=== PATIENT | male | born 1985 | race Caucasian/White ===

== ENCOUNTER 2017-03-15 11:45 | Emergency (ER) | payer MEDICAID ==
[~2017-03-15] VITALS: Ht 172.7 cm; Wt 77.7 kg
[2017-03-15 12:10] VITALS: BP 149/83
--- NOTE | 2017-03-15 12:14 | NUR ---
PT [id number], RR EVEN AND UNLABORED, PT TO LOBBY AWAITING OPEN BED AT THIS TIME.
--- NOTE | 2017-03-15 14:29 | NUR ---
31M BIB AUNT C/O RT JI PAIN & RT ARM PAIN X 1 MONTH. PT STATES FELL OFF 2 STORIES AND BROKE RT JI, AND WAS TOLD TO COME TO ER FOR XRAYS TO BRING TO PCP FOR APPOINTMENT TOMORROW. PT STATES ALSO NEEDS PAIN MEDICATION REFILLED. HX: PT DENIES RX: PT DENIES
[2017-03-15] MEDS ORDERED: KETOROLAC 15 MG/ML VIAL IM ONE (15:45)
--- NOTE | 2017-03-15 16:00 | NUR ---
MEDICATED ORDERED, WILL MONITOR FOR ADVERSE REACTION
[2017-03-15 17:58] VITALS: BP 119/81
--- NOTE | 2017-03-15 17:59 | NUR ---
Patient discharged with v/s stable. Written and verbal after care instructions given and explained. Patient alert, oriented and verbalized understanding of instructions. Ambulatory with steady gait. All questions addressed prior to discharge. ID band removed. Patient advised to follow up with PMD. Rx of norco, ibuprofen given. Patient educated on indication of medication including possible reaction and side effects. Opportunity to ask questions provided and answered.
== END 2017-03-15 17:59 | disposition home or self-care (01) ==
LOC: MED 11:45
DX: M79.674 Pain in right toe(s) (principal); M79.89 Other specified soft tissue disorders; M25.511 Pain in right shoulder; S82.301D Unspecified fracture of lower end of right tibia, subsequent encounter for closed fracture with routine healing; F17.200 Nicotine dependence, unspecified, uncomplicated; W19.XXXD Unspecified fall, subsequent encounter
CPT/HCPCS: 73590; 73660; 96372; 99284; J1885

== ENCOUNTER 2022-10-31 15:17 | Emergency (ER) | payer MEDICAID ==
[~2022-10-31] VITALS: Ht 152.4 cm; Wt 72.6 kg
[2022-10-31 15:23] VITALS: BP 128/78; PULSE 85; RESP 20; TEMP 98; O2SAT 98
[2022-10-31 15:46] VITALS: BP 128/78; PULSE 85; RESP 20; TEMP 98
[2022-10-31] MEDS ORDERED: MORPHINE SULFATE 4 MG/ML SYR IVP ONE ×2 (15:50→19:05)
[2022-10-31] MEDS ORDERED: ONDANSETRON 4 MG/2 ML VIAL IVP ONE (15:50)
[2022-10-31] MEDS ORDERED: LIDOCAINE MPF 1% 10 MG/ML VIAL INJ ONE (15:55)
[2022-10-31] MEDS ORDERED: BACITRACIN OINT 500 UNITS/GM PKT TP ONE ×2 (16:40)
[2022-10-31 16:59] VITALS: O2SAT 98
[2022-10-31] MEDS ORDERED: IBUP-2213 PO (19:27)
[2022-10-31] MEDS ORDERED: ACET-8905 PO (19:27)
== END 2022-10-31 20:30 | disposition home or self-care (01) ==
LOC: MED 15:17
DX: S52.291A Other fracture of shaft of right ulna, initial encounter for closed fracture (principal); S82.831A Other fracture of upper and lower end of right fibula, initial encounter for closed fracture; S82.492A Other fracture of shaft of left fibula, initial encounter for closed fracture; S01.111A Laceration without foreign body of right eyelid and periocular area, initial encounter; Z79.899 Other long term (current) drug therapy; Y04.2XXA Assault by strike against or bumped into by another person, initial encounter; Y93.89 Activity, other specified; Y92.89 Other specified places as the place of occurrence of the external cause; Y99.8 Other external cause status
CPT/HCPCS: 12011; 29105; 29505; 70450; 71045; 73090; 73552; 73590; 90471; 90715; 96374; 96375; 96376; 99285; J2001; J2270; J2405; Q0092

== ENCOUNTER 2022-11-25 19:29 | Emergency (ER) | payer MEDICAID ==
[~2022-11-25] VITALS: Ht 172.7 cm; Wt 71.9 kg
[~2022-11-25 19:29] MED LIST: ACET-8905 PO; IBUP-2213 PO
[2022-11-25 19:48] VITALS: BP 126/69; PULSE 90; RESP 16; TEMP 98.1; O2SAT 98
[2022-11-25] MEDS ORDERED: IBUP-2213 PO (20:19)
[2022-11-25] MEDS ORDERED: HYDR-5191 PO (20:19)
[2022-11-25] MEDS ORDERED: KETOROLAC 60 MG/2 ML VIAL IM ONE (20:40)
== END 2022-11-25 21:00 | disposition home or self-care (01) ==
LOC: MED 19:29
DX: S52.291A Other fracture of shaft of right ulna, initial encounter for closed fracture (principal); F17.200 Nicotine dependence, unspecified, uncomplicated; Z79.899 Other long term (current) drug therapy; X58.XXXA Exposure to other specified factors, initial encounter; Y93.89 Activity, other specified; Y92.89 Other specified places as the place of occurrence of the external cause; Y99.8 Other external cause status
CPT/HCPCS: 29105; 96372; 99283; J1885

== ENCOUNTER 2022-12-07 03:10 | Emergency (ER) | payer MEDICAID ==
[~2022-12-07] VITALS: Ht 172.7 cm; Wt 72.6 kg
[~2022-12-07 03:10] MED LIST changes: +HYDR-5191 PO
[2022-12-07 03:23] VITALS: BP 146/91; PULSE 83; RESP 18; TEMP 98.4; O2SAT 100
== END 2022-12-07 04:22 ==
LOC: MED 03:10
DX: Z02.89 Encounter for other administrative examinations (principal); Z79.899 Other long term (current) drug therapy; Z79.1 Long term (current) use of non-steroidal anti-inflammatories (NSAID)
CPT/HCPCS: 99283